=== PATIENT | female | born 1990 | race Caucasian/White ===

== ENCOUNTER 2021-02-28 16:39 | Emergency (ER) | payer BC ==
[~2021-02-28] VITALS: Ht 165.1 cm; Wt 59.9 kg
[2021-02-28] MEDS ORDERED: IV NS 0.9% 1,000 ML BAG IV ONE (18:00)
[2021-02-28] MEDS ORDERED: ACETAMINOPHEN 325 MG TABLET PO ONE (18:00)
[2021-02-28] MEDS ORDERED: ACETAMINOPHEN 325 MG TABLET ONE (19:02)
[2021-02-28 19:13] LABS: BILIRUBIN,URINE NEGATIVE (NEGATIVE); COLOR,URINE DARK YELLOW (YELLOW); LEUKOCYTE ESTERASE ,URINE NEGATIVE (NEGATIVE); NITRITE, URINE NEGATIVE (NEGATIVE); PROTEIN,URINE NEGATIVE (NEGATIVE); UGLUCOSE NEGATIVE (NEGATIVE)
[2021-02-28 19:25] LABS: BACTERIA,URINE Many /HPF (None Seen); SQUAMOUS EPITHELIAL CELL,UR Many /HPF (None Seen)
[2021-02-28 19:26] LABS: WBC,URINE 0-2 /HPF (0-3)
--- NOTE | 2021-02-28 19:30 | NUR ---
RECIEVED REPORT FOR CHAPIN. PATIENT VSS, WILL CONTINUE TO MONITOR.
[2021-02-28] MEDS ORDERED: ACET-2605 PO (20:10)
[2021-02-28] MEDS ORDERED: CETI-90 PO (20:10)
--- NOTE | 2021-02-28 20:22 | NUR ---
Patient discharged to home in stable condition. Rx and Written and verbal after care instructions given. Patient verbalizes understanding of instruction.
[2021-02-28 20:23] VITALS: BP 121/64
== END 2021-02-28 20:20 | disposition home or self-care (01) ==
LOC: ER 17:12
DX: O99.511 Diseases of the respiratory system complicating pregnancy, first trimester (principal); J06.9 Acute upper respiratory infection, unspecified; O46.91 Antepartum hemorrhage, unspecified, first trimester; Z3A.09 9 weeks gestation of pregnancy
CPT/HCPCS: 36415; 76805; 81001; 84702; 87086; 96360; 99284; J7030